=== PATIENT | male | born 1965 | race African-American/Black ===

== ENCOUNTER → 2017-03-24 | Outpatient (CLI) | payer SELFPAY ==
[2017-03-24 14:38] LABS: HEMATOCRIT 42.9 % (37.9-51.0); HEMOGLOBIN 14.5 g/dL (13.5-17.0); HGB HCT DIFFERENCE 0.6; MEAN CORPUSCULAR HEMOGLOBIN 28.6 pg (27.0-33.4); MEAN CORPUSCULAR HGB CONC 33.9 g/dL (32.0-36.0); MEAN CORPUSCULAR VOLUME 84 fl (80-97); RED BLOOD COUNT 5.09 10^6/uL (4.35-5.55); RED CELL DISTRIBUTION WIDTH 13.6 % (11.5-14.0); WHITE BLOOD COUNT 5.2 10^3/uL (4.0-10.5)
[2017-03-24 14:59] LABS: ALANINE AMINOTRANSFERASE 16 U/L (21-72); ALBUMIN 4.3 g/dL (3.5-5.0); ALKALINE PHOSPHATASE 57 U/L (38-126); ANION GAP 11 (5-19); ASPARTATE AMINO TRANSFERASE 14 U/L (17-59); BILIRUBIN,DIRECT 0.3 mg/dL (0.0-0.4); BILIRUBIN,TOTAL 0.9 mg/dL (0.2-1.3); BLOOD UREA NITROGEN 11 mg/dL (7-20); CALCIUM 9.3 mg/dL (8.4-10.2); CARBON DIOXIDE 27 mmol/L (22-30); CHLORIDE 105 mmol/L (98-107); CHOLESTEROL 175.73 mg/dL (0-200); CREATININE RESULT 1.12 mg/dL (0.52-1.25); Direct HDL 37 mg/dL (>40); GLUCOSE 94 mg/dL (75-110); POTASSIUM 4.2 mmol/L (3.6-5.0); SODIUM 143.3 mmol/L (137-145); TOTAL PROTEIN 7.5 g/dL (6.3-8.2); TRIGLYCERIDES 64 mg/dL (<150); URIC ACID 5.7 mg/dL (3.5-8.5)
[2017-03-24 15:10] LABS: DIRECT LDL 128 mg/dL (<100)
== END ==
LOC: LAB 14:26
PROVIDERS: ATTEND Family Medicine
DX: I10 Essential (primary) hypertension (principal); Z13.1 Encounter for screening for diabetes mellitus; Z13.220 Encounter for screening for lipoid disorders
CPT/HCPCS: 36415; 80053; 80061; 83036; 84443; 84550; 85027

== ENCOUNTER 2017-05-13 12:20 | Emergency (ER) | payer OTHER ==
--- NOTE | 2017-05-13 12:52 | ER Document Report ---
ED General - General Chief Complaint: Eye Problem Stated Complaint: LEFT EYE IRRITATION Time Seen by Provider: 05/13/17 12:52 Mode of Arrival: Ambulatory Information source: Patient Notes: Patient is a 51 year old male who presents with left eye redness and irritation that started this morning when he woke up. Endorses drainage that caused matting of eyelashes. Denies foreign body sensation, changes in vision, blurred vision, excessive tearing, fever or chills. Endorses wearing reading glasses but does not wear contacts. Denies any other sick contacts. TRAVEL OUTSIDE OF THE [place] IN LAST 30 DAYS: No - Related Data Allergies/Adverse Reactions: iodine [Iodine] Allergy (Verified 05/13/17 12:38) Past Medical History - General Information source: Patient - Social History Smoking Status: Smoker,Current Status Unk Family History: Reviewed & Not Pertinent - Past Medical History Cardiac Medical History: Reports: Hx Coronary Artery Disease - HIGH CHOLESTROL, Hx Hypercholesterolemia, Hx Hypertension Renal/ Medical History: Denies: Hx Peritoneal Dialysis - Immunizations Hx Diphtheria, Pertussis, Tetanus Vaccination: Yes Review of Systems - Review of Systems Constitutional: See HPI EENT: See HPI Cardiovascular: No symptoms reported Respiratory: No symptoms reported Gastrointestinal: No symptoms reported Genitourinary: No symptoms reported Male Genitourinary: No symptoms reported Musculoskeletal: No symptoms reported Skin: No symptoms reported Hematologic/Lymphatic: No symptoms reported Neurological/Psychological: No symptoms reported Physical Exam - Vital signs Vitals: Temp Pulse BP Pulse Ox 98.5 F 68 164/104 H 97 05/13/17 12:32 05/13/17 12:32 05/13/17 12:32 05/13/17 12:32 Interpretation: Hypertensive - Patient was on lisinopril and is starting new medication - prescription is waiting at [facility] to be picked up. He is unsure of new medication name. - Notes Notes: PHYSICAL EXAM: CONSTITUTIONAL: Alert and oriented, well-appearing and in no acute distress. HENT: Normocephalic, atraumatic. Moist mucous membranes. EYES: Pupils equal round and reactive to light, EOM intact. Sclera anicteric. No entrapment. Left eye with conjunctival erythema and injection, no drainage or excessive tearing. NECK: supple without lymphadenopathy. No midline tenderness or paraspinous muscle spasms. No step-offs or deformities. ROM intact. HEART: Regular rate and rhythm without murmurs. LUNGS: CTAB and equal. No wheezes, rales or rhonchi. EXTREMITIES: Normal range of motion, no pitting edema. No cyanosis. Cap Refill < 3 seconds. NEURO: Cranial nerves grossly intact. Normal sensory/motor exams. SKIN: Warm and dry. Normal turgor. No rashes or lesions noted. Course - Re-evaluation Re-evalutation: 05/13/17 13:15 Patient seen and examined. Eye exam consistent with bacterial conjunctivitis - no blurred vision/changes in vision. Noted hypertensive - Patient was on lisinopril but his PCP changed it and is starting new medication - prescription is waiting at [facility] to be picked up. He is unsure of new medication name. 05/13/17 14:09 Repeat BP showed high diastolic BP - spoke with pharmacist at [facility] and script is for Norvasc 10 mg. Will give dose here prior to discharge and reiterate to patient he must go pick up man his medication. At this time, will discharge with return precautions and follow-up recommendations. Verbal discharge instructions given at the bedside and opportunity for questions given. Medication warnings reviewed. Patient is in agreement with this plan and has verbalized understanding of return precautions and the need for primary care follow-up in the next 24-72 hours. - Vital Signs Vital signs: Temp Pulse Resp BP Pulse Ox 98.5 F 68 164/104 H 97 05/13/17 12:32 05/13/17 12:32 05/13/17 12:32 05/13/17 12:32 Discharge - Discharge Clinical Impression: Bacterial conjunctivitis of left eye Hypertension Qualifiers: Hypertension type: essential hypertension Qualified Code(s): I10 - Essential ( primary) hypertension Condition: Stable Disposition: HOME, SELF-CARE Additional Instructions: *You have been evaluated for eye irritation and diagnosed with bacterial conjunctivitis *Use eye drops as prescribed *Good hand washing- Do not reuse wash clothes or towels after wiping eyes *Follow up with an [employer]ian studies program chair *Return to ED for worsening condition, changes, needs Prescriptions: Ofloxacin [Ocuflox] 2 drop OS BID 7 Days drops Forms: Elevated Blood Pressure Referrals: PIERRE ENRIQUEZ MD [Primary Care Provider] - Follow up in 3-5 days
[2017-05-13] MEDS ORDERED: AMLODIPINE BESYLATE 10 MG TABLET PO ONE (14:09)
[2017-05-13 14:43] VITALS: BP 158/101
== END 2017-05-13 14:34 | disposition home or self-care (01) ==
LOC: ER 12:20
DX: H10.9 Unspecified conjunctivitis (principal); I10 Essential (primary) hypertension; F17.200 Nicotine dependence, unspecified, uncomplicated; E78.00 Pure hypercholesterolemia, unspecified; I25.10 Atherosclerotic heart disease of native coronary artery without angina pectoris
CPT/HCPCS: 99282